=== PATIENT | male | born 1975 | race Caucasian/White ===

== ENCOUNTER 2017-12-31 09:32 | Emergency (ER) | payer BC, OTHER ==
[~2017-12-31] VITALS: Ht 190.5 cm; Wt 105.0 kg
[~2017-12-31 09:32] MED LIST: VENL100T PO
[2017-12-31 09:40] VITALS: BP 132/95; PULSE 90; RESP 16; TEMP 98.4; O2SAT 93
--- NOTE | 2017-12-31 10:07 | PD ---
HPI Chief Complaint: Pain: Acute or Chronic Time Seen by Provider: 10:02 Travel History International Travel<30 days: No Contact w/Intl Traveler<30days: No History of Present Illness HPI 42-year-old male presents to the emergency department with complaint of left lateral neck pain that started a week and a half ago with pain extending into his left neck/lower scalp and left clavicular area 3-4 days ago. Was seen in urgent care and was given tramadol and steroids which he has been taking with no improvement in symptoms. Called his primary care provider and she cannot see him until the . Denies injury. Reports pain radiates down his left arm. Denies injury. Denies fever, vomiting. Reports paresthesias to the left hand. Denies decreased range of motion, decreased strength, loss of sensation to the affected extremity. Denies chest pain, shortness of breath. Pain is worse with certain movements. Rates pain 10/10. Describes it as stabbing and shocking. No known relieving factors. Primary care provider is Dr. Mg. Denies significant past medical history. No known allergies. No other modifying factors or associated signs and symptoms. 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) Headaches: Yes Migraines: Yes Social History Alcohol Use: No Tobacco Use: No Substance Use: No (DENIES) Allergies-Medications (Allergen,Severity, Reaction): Uncoded Allergies: LEATHER (Allergy, Severe, 02/07/16) Reported Meds & Prescriptions Reported Meds & Active Scripts Active Robaxin (Methocarbamol) 500 Mg Tab 500 Mg PO QID PRN Percocet (Oxycodone-Acetaminophen) 5-325 mg Tab 1 Tab PO Q6H PRN Reported Effexor (Venlafaxine HCl) 100 Mg Tab 150 Mg PO HS Review of Systems Except as stated in HPI: all other systems reviewed are Neg Physical Exam Narrative GENERAL: Well-nourished, well-developed patient, in no acute distress SKIN: Warm and dry. No rash noted to left lateral neck, scalp, chest wall, back , left upper extremity. HEAD: Atraumatic. Normocephalic. EYES: Pupils equal and round. No scleral icterus. No injection or drainage. ENT: Mucosa pink and moist. Airway patent. NECK: Supple. Trachea midline. No midline tenderness on palpation of the cervical spine. Active rotation greater than 45 left and right. Reproducible tenderness to the left lateral musculature of the neck and to the left lower lateral scalp CARDIOVASCULAR: Regular rate and rhythm. No murmur appreciated. RESPIRATORY: No accessory muscle use. Clear to auscultation. Breath sounds equal bilaterally. GASTROINTESTINAL: Flat. MUSCULOSKELETAL: Left shoulder with tenderness on palpation to the clavicular area, left chest wall area, left upper trapezius muscle; without erythema, edema , ecchymosis; with abduction to 90; joint stable; decreased pyrotechnician strength when compared to right; sensory intact; 2+ radial pulse. No obvious deformities. No clubbing. No cyanosis. No edema. NEUROLOGICAL: Awake and alert. Oriented 3. No obvious cranial nerve deficits. Motor grossly within normal limits. Normal speech. PSYCHIATRIC: Appropriate mood and affect; insight and judgment normal. Data Data Last Documented VS Vital Signs Date Time Temp Pulse Resp B/P (MAP) Pulse Ox O2 Delivery O2 Flow Rate FiO2 12/31/17 09:40 98.4 90 16 132/95 (107) 93 Orders Orders Ketorolac Inj (Toradol Inj) (12/31/17 10:15) Orphenadrine Inj (Norflex Inj) (12/31/17 10:15) Chest, Pa & Lat (12/31/17 ) Sterno-Clavicular Joints (12/31/17 ) Ed Discharge Order (12/31/17 11:13) MDM Medical Decision Making Medical Screen Exam Complete: Yes Emergency Medical Condition: Yes Medical Record Reviewed: Yes Differential Diagnosis Radiculopathy, sternoclavicular joint dislocation, nerve impingement, shoulder pain, shingles Narrative Course 42-year-old male with complaint of left lateral neck pain, pain to his left clavicle, left trapezius muscle pain to the upper back. Denies injury. Toradol and Norflex ordered. 1015: Dr. Hayward evaluated the patient and ordered xrays. 1110: Sternoclavicular joint x-ray and chest x-ray concluded: Sternoclavicular Joint X-Ray 12/31/17 0000 Signed Impressions: Service Date/Time: Sunday, December 31, 2017 10:39 - CONCLUSION: Normal examination. Tanya Correa MD Chest X-Ray 12/31/17 0000 Signed Impressions: Service Date/Time: Sunday, December 31, 2017 10:38 - CONCLUSION: Normal examination. Tanya Correa MD Discussed x-ray findings with the patient. Percocet and Robaxin prescribed for home. Instructed patient to follow up with primary care provider. Patient verbalizes understanding and agreement with treatment plan. Patient is medically cleared and stable for discharge. Discussed reasons to return to the emergency department. Patient agrees with treatment plan. The patients vital signs are stable and the patient is stable for outpatient follow-up and treatment. Patient discharged home, stable and in no acute distress. Diagnosis Primary Impression: Pain of left sternoclavicular joint Additional Impression: Occipital neuralgia of left side Referrals: Orthopaedic Surgeon Primary Care Physician Patient Instructions: Cervical Radiculopathy (ED), General Instructions, Shoulder Pain (ED) Additional Instructions: Tylenol or ibuprofen as needed and as directed to reduce pain and inflammation Rest, ice, and compress extremity to decrease pain and inflammation Avoid aggravating activity; increase activity as tolerated Follow-up with primary care provider Follow-up with orthopedics as needed Return to the emergency department immediately with worsening symptoms Med/Other Pt SpecificInfo: Prescription(s) given Scripts Methocarbamol (Robaxin) 500 Mg Tab 500 MG PO QID Y for MUSCLE SPASM, #30 TAB 0 Refills Prov: Lien Carter 12/31/17 Oxycodone-Acetaminophen (Percocet) 5-325 mg Tab 1 TAB PO Q6H Y for PAIN, #12 TAB 0 Refills Prov: Ketan Milian MD 12/31/17 Disposition: 01 DISCHARGE HOME Condition: Stable Lien Carter Dec 31, 2017 10:07
[2017-12-31] MEDS ORDERED: KETOROLAC TROMETHAMINE 60 MG/2 ML (IM) VIAL IM ONE (10:15)
[2017-12-31] MEDS ORDERED: ORPHENADRINE INJ 60 MG/2 ML AMP IM ONE (10:15)
--- NOTE | 2017-12-31 11:02 | RADRPT ---
EXAM DATE/TIME: 12/31/2017 10:38 [facility] COMPARISON: No previous studies available for comparison. INDICATIONS : Left sided chest pain, MEDICAL HISTORY : None. SURGICAL HISTORY : None. ENCOUNTER: Initial ACUITY: 1 day PAIN SCORE: 9/10 LOCATION: Left chest FINDINGS: PA and lateral views of the chest demonstrate the lungs to be symmetrically aerated without evidence of mass, infiltrate or effusion. The cardiomediastinal contours are unremarkable. Osseous structure s are intact. CONCLUSION: Normal examination. Tanya Correa MD on December 31, 2017 at 10:59 Board Certified Radiologist. This report was verified electronically.
--- NOTE | 2017-12-31 11:07 | RADRPT ---
EXAM DATE/TIME: 12/31/2017 10:39 COMPARISON: No previous studies available for comparison. INDICATIONS : Left Sternoclavicular joint pain unknown injury per patient MEDICAL HISTORY : None. SURGICAL HISTORY : None. ENCOUNTER: Initial ACUITY: 1 day PAIN SCORE: 9/10 LOCATION: Left sterno- clavicular FINDINGS: AP and bilateral oblique views of the sternoclavicular joint were performed. The osseous structures d emonstrate normal alignment and mineralization. The imaged lung is clear. No evidence of fracture or degenerative change. CONCLUSION: Normal examination. Tanya Correa MD on December 31, 2017 at 11:00 Board Certified Radiologist. This report was verified electronically.
[2017-12-31] MEDS ORDERED: PERC5TAB12 PO (11:10)
[2017-12-31] MEDS ORDERED: ROBA500T PO (11:18)
--- NOTE | 2017-12-31 12:03 | PD ---
Data Data Last Documented VS Vital Signs Date Time Temp Pulse Resp B/P (MAP) Pulse Ox O2 Delivery O2 Flow Rate FiO2 12/31/17 09:40 98.4 90 16 132/95 (107) 93 Orders Orders Ketorolac Inj (Toradol Inj) (12/31/17 10:15) Orphenadrine Inj (Norflex Inj) (12/31/17 10:15) Chest, Pa & Lat (12/31/17 ) Sterno-Clavicular Joints (12/31/17 ) Ed Discharge Order (12/31/17 11:13) MDM Supervised Visit with MEGAN: Yes Narrative Course I, Dr. Milian, have reviewed the advance practice practitioner's documentation and am in agreement, met with the patient face to face, made the diagnosis, and the medical decision making was done by me. *My assessment and Findings: This patient has some atypical pains. He has significant pain at the left sternoclavicular joint. Etiology is unclear. I did some x-rays of that joint to make sure there was no dislocation. His x- rays are normal. There is no sign of infection on a clinical basis. He also has an occipital neuralgia. No neurologic deficit noted. Pain medicine prescribed. He should follow-up with his physician. Diagnosis Primary Impression: Pain of left sternoclavicular joint Additional Impression: Occipital neuralgia of left side Referrals: Orthopaedic Surgeon Primary Care Physician Patient Instructions: General Instructions, Cervical Radiculopathy (ED), Shoulder Pain (ED) Departure Forms: Tests/Procedures Additional Instruction: Tylenol or ibuprofen as needed and as directed to reduce pain and inflammation Rest, ice, and compress extremity to decrease pain and inflammation Avoid aggravating activity; increase activity as tolerated Follow-up with primary care provider Follow-up with orthopedics as needed Return to the emergency department immediately with worsening symptoms Scripts Methocarbamol (Robaxin) 500 Mg Tab 500 MG PO QID Y for MUSCLE SPASM, #30 TAB 0 Refills Prov: Lien Carter 12/31/17 Oxycodone-Acetaminophen (Percocet) 5-325 mg Tab 1 TAB PO Q6H Y for PAIN, #12 TAB 0 Refills Prov: Ketan iMlian MD 12/31/17 Disposition: 01 DISCHARGE HOME Condition: Stable Ketan Milian MD Dec 31, 2017 12:02
== END 2017-12-31 11:22 | disposition home or self-care (01) ==
LOC: NEPD 09:32
DX: M25.512 Pain in left shoulder (principal); M54.81 Occipital neuralgia; F90.9 Attention-deficit hyperactivity disorder, unspecified type; F31.9 Bipolar disorder, unspecified
CPT/HCPCS: 71046; 71130; 96372; 99284; J1885; J2360